=== PATIENT | female | born 1960 | race Caucasian/White ===

== ENCOUNTER 2025-05-07 11:36 | Emergency (ER) | payer OTHER ==
[2025-05-07] MEDS ORDERED: ACETAMINOPHEN 500 MG TAB ONE (12:36)
[2025-05-07] MEDS ORDERED: DERMABOND SKIN ADHESIVE TOP ONE (12:36)
[2025-05-07] MEDS ORDERED: IBUPROFEN 200 MG TAB PO ONE (12:37)
[2025-05-07] MEDS ORDERED: TDAP (DIPHTH,PERTUSS(ACELL),TET VAC) 0.5 ML VIAL IMVAC ONE (12:37)
--- NOTE | 2025-05-07 12:44 | RAD REPORT ---
EXAM:Ribs Left CLINICAL HISTORY: Left rib pain FINDINGS: No fracture seen
--- NOTE | 2025-05-07 12:45 | RAD REPORT ---
Exam:Wrist Left 3 View HISTORY: Left wrist pain FINDINGS: Impacted, comminuted intra-articular fracture distal radius with angulation present at the fracture s ite. No dislocation seen
--- NOTE | 2025-05-07 13:00 | RAD REPORT ---
EXAMINATION: CT MAXILLOFACIAL WITHOUT CONTRAST CLINICAL INDICATION: Facial pain. Status post fall TECHNIQUE: Axial images were obtained through the facial bones and orbits without intravenous contras t. Sagittal and coronal reconstructions were created from the data. One or more of the following dose reduction techniques were used: Automated exposure control, adjustment of the mA and/or kV accor ding to patient size, and/or iterative reconstruction. Unless otherwise specified, incidental findings do not require dedicated imaging follow-up. COMPARISON: No prior exam. FINDINGS: Left periorbital hematoma. The globes are normal size and density. No TMJ dislocation. No fracture seen. No fluid within the sinuses IMPRESSION: No fracture seen
--- NOTE | 2025-05-07 13:01 | RAD REPORT ---
EXAM: CT brain without contrast HISTORY: Head injury status post fall COMPARISON: None TECHNIQUE: Multiple contiguous axial images were obtained and a CT of the brain without contrast.. Sagittal and coronal reconstruction performed. Automated exposure control, adjustment of the mA and/or kV according to patient size, and/or iterative reconstruction. Unless otherwise specified, incidental f indings do not require dedicated imaging follow-up FINDINGS: Left frontal scalp hematoma. An intracranial bleed is not seen Ventricles are normal caliber No extra-axial fluid collection noted No significant hypodensity within the brain No fluid within the visualized sinuses or mastoids noted. IMPRESSION: No acute intracranial abnormality noted. If the patient continues to have symptoms to suggest an acute intracranial abnormality then MRI of th e brain would be recommended.
--- NOTE | 2025-05-07 13:26 | EDPHYS ---
Physician Documentation [facility] Name: Linda Ramos Age: 64 yrs Sex: Female : 1960 Arrival Date: 05/07/2025 Time: 11:36 Bed 15 Private MD: ED Physician Mani Weston HPI: 05/07 14:25 This 64 yrs old Female presents to ER via Wheelchair with complaints of Fall Injury. sb4 14:25 Patient states that she tripped and fell getting out of the car, fell onto her left sb4 side, injuring her face, ribs, and wrist. No loss of consciousness. No major bleeding. Does not think her tetanus shot is up-to-date. Historical: - Allergies: 12:04 PENICILLINS; db 12:04 Hydrochlorothiazide; db 12:04 Codeine; db 12:04 Infpece-AJG-YuO Reductase Inhibitors; db 12:04 Levothyroxine Sodium; db 12:04 Spironolactone; db 12:04 POTASSIUM; db - Home Meds: 12:05 indapamide 1.25 mg oral tablet 1 tab [Active]; db - Immunization history:: Adult Immunizations unknown. - Infectious Disease History:: Denies. - Social history:: Smoking status: Patient denies any tobacco usage or history of. ROS: 14:25 Constitutional: Negative for fever, chills, and weight loss, sb4 14:25 MS/extremity: Positive for Per HPI, 14:25 All other systems are negative, Exam: 14:25 Constitutional: This is a well developed, well nourished patient who is awake, alert, sb4 and in no acute distress. 14:25 Eyes: Extra-ocular motions intact. Periorbital areas with no swelling, redness, or edema. ENT: Mucous membranes moist. Respiratory: No increased work of breathing, no retractions or nasal flaring. Skin: Warm, dry with normal turgor. Normal color with no rashes, no lesions, and no evidence of cellulitis. 14:25 Head/face: Noted is hematoma, that is moderate, of the left bahai, a laceration(s), that is superficial, 2 cm(s), of the left bahai, 14:25 Musculoskeletal/extremity: Circulation is intact in all extremities. Pulses: are normal with no appreciated deficits, Perfusion: the extremity is normally perfused throughout, Sensation intact. Joints: the left wrist displays deformity, limited range of motion, pain at rest, painful range of motion, swelling, tenderness, Vital Signs: 12:02 BP 161 / 93; Pulse 74; Resp 18; Temp 98(O); Pulse Ox 95% ; Weight 65.77 kg; Height 5 db ft. 4 in. ; Pain 9/10; 12:02 Body Mass Index 24.89 (65.77 kg, 162.56 cm) db 12:02 Pain Scale: Adult db Laceration: 17:33 Wound Repair of 2.5cm ( 1.0in ) subcutaneous laceration to left bahai. Linear shaped.. sb4 Distal neuro/vascular/tendon intact. Wound prep: Simple cleansing with betadine by me, Wound irrigation with saline by me, Wound explored, Copious irrigation. Skin closed with thin layer Adhesive skin closure using Dermabond. Dressed with bandaid. Patient tolerated well. MDM: 12:02 Medical Screening Exam initiated sb4 14:27 Differential diagnosis: abrasion, closed head injury, contusion, fracture, laceration, sb4 sprain, strain. Data reviewed: vital signs, nurses notes, radiologic studies, plain films, I have discussed the patient's presentation/case with the attending Emergency Department Physician; and as a result, I will discharge patient. Independent interpretation of the following test(s) in the Emergency Department X-Ray: My interpretation is My interpretation of the left wrist x-ray images is acute distal radial fracture. Counseling: I had a detailed discussion with the patient and/or guardian regarding the historical points, exam findings, and any diagnostic results supporting the discharge/admit diagnosis, radiology results, the need for outpatient follow up, a orthopedic surgeon, to return to the emergency department if symptoms worsen or persist or if there are any questions or concerns that arise at home. Special discussion: Based on the history and exam findings, there is no indication for further emergent testing or inpatient evaluation. I discussed with the patient/guardian the need to see the orthopedic surgeon for further evaluation of the symptoms. ED course: Discussed with patient that she will very likely need surgical intervention in the future. Provided her with a disc with her x-ray images and the report and provided the contact information for the orthopedics in the area. She will follow-up later this week. 05/07 12:12 Order name: Head Brain Wo Cont CT; Complete Time: 13:04 sb4 05/07 12:12 Order name: Facial Bones W/O Con CT; Complete Time: 13:04 sb4 05/07 12:12 Order name: Wrist Left (3 View) XRAY; Complete Time: 12:45 sb4 05/07 12:12 Order name: Ribs Left XRAY; Complete Time: 12:45 sb4 05/07 12:13 Order name: Wound Care; Complete Time: 13:57 sb4 05/07 12:13 Order name: Dermabond; Complete Time: 12:49 sb4 05/07 12:54 Order name: Sugar Tong Forearm Splint; Complete Time: 13:37 sb4 Administered Medications: 12:49 Drug: Acetaminophen PO 1000 mg PO once Route: PO; bp 12:49 Drug: Ibuprofen PO 600 mg PO once Route: PO; bp 12:49 Drug: Boostrix Tdap IM 0.5 ml IM once; as a single dose Route: IM; Site: right deltoid; bp Disposition Summary: 05/07/25 13:26 Discharge Ordered Notes: Location: Home sb4 Problem: new sb4 Symptoms: have improved sb4 Condition: Stable sb4 Diagnosis - Fall on same level, unspecified sb4 - Impacted comminuted intra-articular distal radius fracture, left sb4 - Facial Laceration/ Laceration without foreign body of cheek and temporomandibular sb4 area Followup: sb4 - With: Efrain Abbasi MD - When: 2 - 3 days - Reason: Recheck today's complaints, Re-evaluation by your physician Followup: sb4 - With: Nikolas Morales MD - When: 2 - 3 days - Reason: Recheck today's complaints, Re-evaluation by your physician Followup: sb4 - With: Willam Chavarria MD - When: 2 - 3 days - Reason: Recheck today's complaints, Re-evaluation by your physician Discharge Instructions: - Discharge Summary Sheet sb4 - Facial Laceration, [id number] sb4 - Head Injury, Adult, [id number] sb4 - Wrist Fracture Treated With ORIF sb4 Forms: - Patient Portal Instructions sb4 - Leadership Thank You Letter sb4 Prescriptions: - meloxicam 7.5 mg Oral tablet - take 1 tablet ORAL route daily; 10 tablet; Refills: 0, Product Selection sb4 Permitted Signatures: Dispatcher [employer] Julio Cesar Maldonado, RN RN Agnieszka Blanco RN RN Penny Aquino PA-C PA-C sb4 Corrections: (The following items were deleted from the chart) 12:13 12:13 Ribs Left+RAD.RAD.BRZ ordered. EDMS EDMS
--- NOTE | 2025-05-07 13:26 | ER ---
Nurse's Notes [facility] Name: Linda Ramos Age: 64 yrs Sex: Female : 1960 Arrival Date: 05/07/2025 Time: 11:36 Bed 15 Private MD: Diagnosis: Fall on same level, unspecified;Impacted comminuted intra-articular distal radius fracture, left;Facial Laceration/ Laceration without foreign body of cheek and temporomandibular area Presentation: 05/07 12:02 Chief complaint: Patient states: TRIPPED AND FELL OUT OF CAR. COMPLAINS OF HITTING db HEAD, LEFT WRIST PAIN AND LEFT HEAD PAIN. LEFT KNEE PAIN. POSSIBLE LOC. WITNESSED BY SOMEONE DRIVING BY. LEFT WRIST SWELLING AND BRUISING WITH POSSIBLE DEFORMITY. Coronavirus screen: Client denies travel out of the [place] in the last 14 days. At this time, the client does not indicate any symptoms associated with coronavirus-19. Ebola Screen: Patient negative for fever greater than or equal to 101.5 degrees Fahrenheit, and additional compatible Ebola Virus Disease symptoms Patient denies exposure to infectious person. Patient denies travel to an Ebola-affected area in the 21 days before illness onset. No symptoms or risks identified at this time. Initial Sepsis Screen: Does the patient meet any 2 criteria? No. Patient's initial sepsis screen is negative. Does the patient have a suspected source of infection? No. Patient's initial sepsis screen is negative. Risk Assessment: Do you want to hurt yourself or someone else? Patient reports no desire to harm self or others. Onset of symptoms was May 07, 2025. 12:02 Method Of Arrival: Wheelchair db 12:02 Acuity: HEATHER 3 db Triage Assessment: 12:05 General: Appears in no apparent distress. uncomfortable, Behavior is calm, cooperative. db Pain: Complains of pain in head, left wrist, face and left leg. Historical: - Allergies: 12:04 PENICILLINS; db 12:04 Hydrochlorothiazide; db 12:04 Codeine; db 12:04 Eafxxjq-[id number] Reductase Inhibitors; db 12:04 Levothyroxine Sodium; db 12:04 Spironolactone; db 12:04 POTASSIUM; db - Home Meds: 12:05 indapamide 1.25 mg oral tablet 1 tab [Active]; db - Immunization history:: Adult Immunizations unknown. - Infectious Disease History:: Denies. - Social history:: Smoking status: Patient denies any tobacco usage or history of. Vital Signs: 12:02 BP 161 / 93; Pulse 74; Resp 18; Temp 98(O); Pulse Ox 95% ; Weight 65.77 kg; Height 5 db ft. 4 in. ; Pain 9/10; 12:02 Body Mass Index 24.89 (65.77 kg, 162.56 cm) db 12:02 Pain Scale: Adult db ED Course: 11:39 Patient arrived in ED. al6 12:01 [facility] Shen [facility] sb4 12:01 Mani Weston MD is Attending Physician. sb4 12:04 Triage completed. db 12:05 Arm band placed on Patient placed in an exam room. db 12:34 Wrist Left (3 View) XRAY In Process Unspecified. EDMS 12:34 Ribs Left XRAY In Process Unspecified. EDMS 12:38 Head Brain Wo Cont CT In Process Unspecified. EDMS 12:38 Facial Bones W/O Con CT In Process Unspecified. EDMS 13:24 Efrain Abbasi MD is Referral Physician. sb4 13:25 Nikolas Morales MD is Referral Physician. sb4 13:25 Willam Chavarria MD is Referral Physician. sb4 13:38 Orthoglass splint: Sugar tong splint applied on left arm. Sling applied to left arm. em1 Administered Medications: 12:49 Drug: Acetaminophen PO 1000 mg PO once Route: PO; bp 12:49 Drug: Ibuprofen PO 600 mg PO once Route: PO; bp 12:49 Drug: Boostrix Tdap IM 0.5 ml IM once; as a single dose Route: IM; Site: right deltoid; bp Outcome: 13:26 Discharge ordered by . sb4 13:57 Patient left the ED. hb Signatures: Dispatcher [employer] EDMS Regulo Marti em1 Kristina Galindo, RN RN Julio Cesar Wiggins RN RN bp Agnieszka Martin, RN RN db Penny Shen PA-C PA-C sb4 Nancy Finley al6
[2025-05-07 14:00] VITALS: BP 161/93; TEMP 98; O2SAT 95
== END 2025-05-07 13:57 | disposition home or self-care (01) ==
LOC: ER 11:36
DX: S52.572A Other intraarticular fracture of lower end of left radius, initial encounter for closed fracture (principal); S01.81XA Laceration without foreign body of other part of head, initial encounter; W18.30XA Fall on same level, unspecified, initial encounter; Z23 Encounter for immunization
CPT/HCPCS: 12051; 70450; 70486; 76377; 90715; 96372; 99284